=== PATIENT | male | born 1950 | race Caucasian/White ===

== ENCOUNTER 2017-02-02 01:38 | Inpatient (IN) | payer BC ==
[2017-02-02] MEDS ORDERED: Aspirin 325 MG TAB ONE (01:54)
[2017-02-02 02:33] LABS: #Basophils 0.1 thou/uL (0.0-0.2); #Eosinphils 0.1 thou/uL (0.0-0.7); #Lymphocytes 2.6 thou/uL (1.20-3.40); #Monocytes 1.2 thou/uL (0.11-0.59); #Neutrophils 10.9 thou/uL (1.40-6.50); %Basophils 0.8 % (0.0-1.0); %Eosinophils 0.5 % (0.0-10.0); %Lymphocytes 17.4 % (21.0-51.0); %Monocytes 8.2 % (0.0-10.0); Hematocrit 41.2 % (42.0-52.0); Mean Platelet Volume 7.7 fL (7.4-10.4); Red Blood Cell (RBC) Count 5.41 mill/uL (4.70-6.10); White Blood Cell (WBC) Count 14.9 thou/uL (4.8-10.8)
[2017-02-02 02:50] LABS: ALT (SGPT) 23 U/L (8-55); AST (SGOT) 25 U/L (5-34); Alkaline Phosphatase 131 U/L (40-150); Anion Gap 15 mmol/L (10-20); BUN (Urea Nitrogen) 14 mg/dL (8.4-25.7); CK (CPK) 49 U/L (30-200); Calc. Creatinine Clearance 0 mL/min (70-130); Calcium 9.2 mg/dL (7.8-10.44); Carbon Dioxide 21 mmol/L (23-31); Chloride 101 mmol/L (98-107); Estimated GFR-MDRD 59; Globulin 3.8 g/dL (2.4-3.5); Magnesium 2.3 mg/dL (1.6-2.6); Protein, Total 7.8 g/dL (5.8-8.1)
[2017-02-02 02:55] LABS: Troponin I Less than 0.010 ng/mL (< 0.028)
[2017-02-02] MEDS ORDERED: Nitroglycerin 0.4 MG TAB (25 Tab Bottle) ONE (03:35)
[2017-02-02] MEDS ORDERED: Ketorolac Tromethamine 30 MG/ML VIAL ONE (04:05)
[2017-02-02] MEDS ORDERED: Eucerin (Mineral Oil/Petrolatum,White) 30 gm Jar TOP PRN (05:48)
[2017-02-02] MEDS ORDERED: Ondansetron HCl/PF 4 MG/2 ML Vial IVP PRN (05:48)
[2017-02-02] MEDS ORDERED: Acetaminophen 325 MG TAB PO PRN (05:48)
[2017-02-02] MEDS ORDERED: Diabetic Tussin 200 MG/10 ML UDCUP PO PRN (05:48)
[2017-02-02] MEDS ORDERED: Mag-Al 1200 mg/1200 mg/30 ML UDCUP PO PRN (05:48)
[2017-02-02] MEDS ORDERED: Loratadine 10 MG TAB PO PRN (05:48)
[2017-02-02] MEDS ORDERED: Benzonatate 100 MG CAP PO PRN (05:48)
[2017-02-02] MEDS ORDERED: Zolpidem Tartrate 5 MG TAB PO PRN (05:48)
[2017-02-02] MEDS ORDERED: Senokot 8.6 MG TAB PO PRN (05:48)
[2017-02-02] MEDS ORDERED: Sodium Chloride 0.65% Nasal 44 ML BOT EA NARE PRN (05:48)
[2017-02-02] MEDS ORDERED: Milk Of Magnesia 30 ML UDCUP PO PRN (05:48)
[2017-02-02] MEDS ORDERED: Artificial Tears 18 DROP/0.9 ML EA EYE PRN (05:48)
[2017-02-02] MEDS ORDERED: Loperamide HCl 2 MG CAP PO PRN (05:48)
[2017-02-02] MEDS ORDERED: Ondansetron ODT 4 MG TAB PO PRN (05:48)
--- NOTE | 2017-02-02 05:50 | HP ---
PRIMARY CARE PHYSICIAN: Dr. Alireza Brown REASON FOR ADMISSION: Chest pain. HISTORY OF PRESENT ILLNESS: A 66-year-old male who has no significant medical history who came to the emergency room with the complaint of chest pain. The patient reports that chest pain started when he was reading book and resting at home. It was substernal, as well as left-sided in location which radiated to the neck and both shoulders, sharp in nature, constant pain which was getting worse with deep breathing, associated with shortness of breath. The pain was getting worse when he was lying flat. The patient denies any pressure sensation. He denies any associated nausea, vomiting, diaphoresis. In the emergency room, the patient was uncomfortable. He was having severe pain. The patient was given nitroglycerin sublingual and with sublingual nitroglycerin his blood pressure dropped from 153/94 to 121/110 and subsequently with the second nitroglycerin, his blood pressure dropped to 76/ 40. Patient required a bolus of fluid. When the patient's blood pressure dropped at that time his pain had gotten worse. He denies any fever. The patient reports that for the last 10 days he is experiencing cough. He went to see the ENT doctor a few weeks ago and he was given a couple of times steroid injection. The patient was also trying cough syrup with hydrocodone, Benadryl and other over the counter medication. He was having only clear sputum. He denies any hemoptysis. He denies any lower extremity edema or calf tenderness. He denies any immobilization. He has a history of cigar smoking. He denies any similar pain in the past. He denies any exertion related chest pain, palpitation or shortness of breath. He denies any dizziness or syncope. When the patient's blood pressure dropped at that time he was feeling dizziness that was only transient. He did not pass out. The patient denies any UTI symptoms. He denies any constipation, diarrhea, melena, hematochezia. He denies any headache. He denies any sore throat. REVIEW OF SYSTEMS: The following complete review of systems was negative, unless otherwise mentioned in the HPI or below: Constitutional: Weight loss or gain, ability to conduct usual activities. Skin: Rash, itching. Eyes: Double vision, pain. ENT/Mouth: Nose bleeding, neck stiffness, pain, tenderness. Cardiovascular: Palpitations, dyspnea on exertion, orthopnea. Respiratory: Shortness of breath, wheezing, cough, hemoptysis, fever or night sweats. Gastrointestinal: Poor appetite, abdominal pain, heartburn, nausea, vomiting, constipation, or diarrhea. Genitourinary: Urgency, frequency, dysuria, nocturia. Musculoskeletal: Pain, swelling. Neurologic/Psychiatric: Anxiety, depression. Allergy/Immunologic: Skin rash, bleeding tendency. Please see my HPI for pertinent positives and negatives. All other review of systems reviewed and negative except as mentioned in the HPI. EMERGENCY ROOM COURSE: The patient was given nitroglycerin 0.4 mg sublingual and after that his blood pressure dropped and to improve his blood pressure the patient was given 2 liters of IV fluid bolus. The patient was also given aspirin 324 mg and patient was also given Toradol for his pain. PAST MEDICAL HISTORY: Reviewed and negative. PAST SURGICAL HISTORY: The patient had orthopedic surgery on his right shoulder. PAST PSYCHIATRIC HISTORY: Reviewed and negative. SOCIAL HISTORY: Patient is . He drinks alcohol socially, denies any other illicit drug abuse. He smokes cigars daily. FAMILY HISTORY: No strong family history of premature coronary artery disease, stroke or cancer. ALLERGIES: No known drug allergies. CURRENT HOME MEDICATIONS: The patient is not taking any prescribed medication, but lately he was trying [id number] cough medication. PHYSICAL EXAMINATION:. VITAL SIGNS: Lowest blood pressure after nitroglycerin was 76/40 and after IV fluids, his blood pressure improved to 131/72, pulse 83, respiratory rate 18, saturation initially 91% on 2 liters, but after that his saturation improved to 100% on 2 liter, weight 75.5 kilograms. GENERAL: The patient is uncomfortable due to pain. HEENT: Normocephalic, atraumatic. Eyes: Pupils round, reactive to light. Extraocular muscles intact. ENT: Oropharynx within normal limits. Moist mucous membranes. No oral lesions. No pharyngeal erythema, no exudate. NECK: Supple. Range of motion is normal. No meningeal signs of irritation. LUNGS: Clear to auscultation without any rhonchi or rales. CARDIAC: S1, S2 regular. No murmur, no gallop, no rub. ABDOMEN: Soft, bowel sounds present, nontender, nondistended. No organomegaly , no mass, no suprapubic tenderness. CHEST WALL: No point tenderness. No reproducibility. BACK: Unremarkable, no CVA tenderness. EXTREMITIES: Upper extremities; passive movement of all joints are normal. Lower extremities: No edema. Good peripheral pulsation. No calf tenderness. SKIN: No skin rash. HEMATOLOGICAL: No lymphadenopathy. NEUROLOGIC: Nonfocal examination. The patient moves all 4 limbs. Plantar bilateral flexor. PSYCHIATRIC: Normal affect. SIGNIFICANT LABS: EKG based on my review reveals normal sinus rhythm within normal limits. Repeat EKG was done when he had more pain and that also showed normal EKG. Chest x-ray based on my review, no acute cardiopulmonary process. CBC: WBC 14.9, hemoglobin 14.1, platelet 247. BMP: Sodium 133, potassium 4.3 , chloride 101, carbon dioxide 21, BUN 14, creatinine 1.24, glucose 115, calcium 9.2, magnesium 2.3. LFT: AST 25, ALT 23, alkaline phosphatase 131, albumin 4.0. CK 49, CK-MB 0.4, troponin I less than 0.010, BNP 37.6. ASSESSMENT AND PLAN: 1. Acute chest pain. The patient's chest pain description is pleuritic in nature. Given episode of hypotension and dyspnea associated with chest pain, we will do CT dissection protocol to rule out dissection as well as thromboembolic disorder. His 2 EKGs are normal and his cardiac enzymes are negative. We will do 2 more sets of cardiac enzymes to rule out acute coronary syndrome. If CT dissection protocol is unremarkable, then we will consider doing exercise Cardiolite stress test for diagnostic reason. I am suspecting musculoskeletal pain given his recent 10 days history of cough and possible rib cage pain. His pain will be controlled with morphine p.r.n. basis/[place] on a p.r.n. basis. 2. Leukocytosis, unclear etiology, but suspecting from bronchitis/viral infection. 3. Hyponatremia. Patient is given enough IV fluid and we will repeat BMP tomorrow. 4. Acute hypotension after nitroglycerin. We will avoid nitroglycerin again to prevent hypotension. We will watch his hemodynamics today. We will also rule out any thromboembolic disorder and dissection. 5. Tobacco abuse disorder. The patient is given counseling to avoid cigar smoking. 6. Deep venous thrombosis prophylaxis not needed because we are expecting discharge in 24-48 hours. 7. Gastrointestinal prophylaxis, Pepcid 20 mg p.o. b.i.d. 8. CODE STATUS: The patient is FULL CODE. The patient's is surrogate decision maker. 9. Community acquired bacterial pneumonia. will start rocephin 1 gm and levaquin IV daily. will keep pt as inpt status. Disposition plan based on clinical course. MTDD
[2017-02-02 06:04] VITALS: BMI 25.9
[2017-02-02 06:56] LABS: Troponin I Less than 0.010 ng/mL (< 0.028)
--- NOTE | 2017-02-02 08:22 | CT ---
PRELIMINARY REPORT/[facility]/EMERGENCY AFTER HOURS PROCEDURE: EXAM: CT Angiography Chest With Intravenous Contrast CT Angiography Abdomen With Intravenous Contrast CLINICAL HISTORY: 66 years old, male; Pain; Chest pain; Patient HX: 66 yo m presents to ed C/O l chest pain with radia tion to neck and shoulders that started a couple hours group captain while pt was reading and at rest. Pt stat es pain is worse with deep breaths. Also reports SOB which is worse laying flat. Denies this happeni ng in the past. Pt has been congested and coughing with clear sputum for past x10 days. Also reports chills, pt did not check if he had a fever. Pt also reports feeling thirsty, states he has also bee n urinating less than normal. Pt reports smoking cigars. Denies cardiac fmh. ; Additional info: on ly 70 ml of contrast used due to low gfr TECHNIQUE: Axial computed tomographic angiography images of the chest and abdomen with intravenous contrast usi ng CT angiography protocol. Coronal and sagittal reformatted images were created and reviewed. CONTRAST: 70 mL of ISOVUE 370 administered intravenously. COMPARISON: No relevant prior studies available. FINDINGS: VASCULATURE: Aorta: [id number] infrarenal atherosclerotic calcifications. No aortic aneurysm. No dissection . Pulmonary arteries: Limited opacification of the pulmonary arteries. No filling defect appreciated i n the main or lobar branches. Great vessels of aortic arch: No acute findings. No dissection. No occlusion or significant stenosis . Celiac trunk and mesenteric arteries: No acute findings. No occlusion or significant stenosis. Renal arteries: No acute findings. No occlusion or significant stenosis. CHEST: Lungs: Moderate centrilobular emphysematous changes with paraseptal component. Left lower lobe mucou s plugging with some subsegmental atelectasis and groundglass and patchy consolidative densities dep endently. Minimal right lower lobe bronchiolar plugging and dependent groundglass opacities. Pleural space: No significant effusion. No pneumothorax. Heart: Coronary atherosclerosis. Trace pericardial effusion or thickening. ABDOMEN: Liver: Normal. Gallbladder and bile ducts: Normal. Pancreas: Normal. Spleen: Normal. Adrenals: Normal. Kidneys and ureters: Subcentimeter right renal cyst. Otherwise unremarkable. Stomach and bowel: Unremarkable. No obstruction. Intraperitoneal space: Normal. No significant fluid collection. No free air. CHEST and ABDOMEN: Bones/joints: No acute fracture. No dislocation. Soft tissues: Unremarkable. Lymph nodes: Multiple subcentimeter mediastinal and bilateral hilar lymph nodes measuring up to 1.2 cm short axis and the right hilar region. IMPRESSION: 1. No acute vascular findings. 2. Emphysematous changes. Left lobe mucous plugging and dependent groundglass and patchy consolidati ve densities with minimal similar findings in the right lower lobe may represent infectious/inflamma tory process versus aspiration. Thank you for allowing us to participate in the care of your patient. Dictated and Authenticated by: Seth Lino MD 02/02/2017 5:14 AM Central Time ([place] \T\ [place]) FINAL REPORT CT ANGIOGRAM OF CHEST AND ABDOMEN: Date: 02/02/17 COMPARISON: None. HISTORY: Chest pain. FINDINGS: I agree with the preliminary report given by [facility]. Motion artifact limits detailed assessment of the lung parenchyma. There is extensive pulmonary pare nchymal emphysematous change with an upper lobe predominance. Areas of patchy opacification noted wi thin both lower lobes, left greater than right, especially in the lung bases. There are areas of muc us plugging noted within the lung bases, left greater than right. Findings may be on the basis of as piration and/or infectious pneumonitis. The provided imaging is performed with coronal and sagittal 3D reformatted imaging. There are gasca ry arterial calcifications. There is atherosclerotic calcification at the level of the aortic arch. There is no evidence for aneurysm or dissection of the abdominal or thoracic aorta. There is extensi ve atherosclerotic calcification in the infrarenal abdominal aorta and the arterial structures of th e pelvis. No axillary adenopathy is seen. Mildly prominent nodes are seen in bilateral hilar regions and in th e paratracheal regions, nonspecific. Evaluation of the bowel is limited without oral contrast. The pelvis is not imaged. No acute hepatic or splenic abnormality seen. Gallbladder and pancreas appear unremarkable, as do bilateral adrenal glands. There is a tiny hypodensity in the lateral lower pole of the right kidney, too small to janel acterize. No retroperitoneal lymphadenopathy. No acute osseous abnormality. There is a unilateral left-sided L5 pars defect present. IMPRESSION: 1. Atherosclerotic disease with no evidence for aneurysm or dissection of the abdominal or thoracic aorta. 2. Bilateral emphysematous change. 3. Basilar mucus plugging and pulmonary parenchymal opacity, left greater than right, which may sig nify infectious pneumonitis/aspiration. POS: [facility]
--- NOTE | 2017-02-02 08:38 | RAD ---
PORTABLE UPRIGHT FRONTAL CHEST RADIOGRAPH: DATE: 02/02/17. COMPARISON: None. HISTORY: Chest pain. FINDINGS: Mild increased linear density noted in bilateral lung bases, left greater than right, significance u ncertain. No pneumothorax, pleural fluid, focal consolidation, or alveolar edema. IMPRESSION: Mild increased linear bibasilar density with no lobar consolidation or alveolar edema. POS: [facility]
--- NOTE | 2017-02-02 08:59 | PDOC.PN ---
- Subjective Encounter Start Date: 02/02/17 Encounter Start Time: 08:57 Patient seen at bedside. Overnight had an episode of chest pain which resolved with Nitroglycerin and Toradol. This morning had an episode of pleuritic chest pain. - Objective Resuscitation Status: Resuscitation Status FULL:Full Resuscitation MAR Reviewed: Yes Vital Signs & Weight: Vital Signs (12 hours) Temp Pulse Resp BP Pulse Ox 02/02/17 08:00 97.8 F 73 24 H 132/83 90 L 02/02/17 05:31 98.3 F 68 14 104/58 L 92 L Weight Weight 171 lb I&O: 02/01/17 02/02/17 02/03/17 06:59 06:59 06:59 Intake Total 240 Balance 240 Result Diagrams: 02/02/17 02:15 02/02/17 02:15 Phys Exam - Physical Examination Constitutional: NAD HEENT: moist MMs Neck: no JVD mild wheezing Cardiovascular: RRR Tenderness at left chest wall Gastrointestinal: soft Musculoskeletal: pulses present Neurological: normal sensation Psychiatric: normal affect, A&O x 3 Dx/Plan (1) Chest pain Code(s): R07.9 - CHEST PAIN, UNSPECIFIED Status: Acute Qualifiers: Chest pain type: chest pain on breathing Qualified Code(s): R07.1 - Chest pain on breathing; R07.81 - Pleurodynia (2) Community acquired pneumonia Code(s): J18.9 - PNEUMONIA, UNSPECIFIED ORGANISM Status: Suspected (3) Leukocytosis Code(s): D72.829 - ELEVATED WHITE BLOOD CELL COUNT, UNSPECIFIED Status: Acute - Plan cont current plan of care, plan discussed w/ family, continue antibiotics, respiratory therapy * Start IV Fluids. * Toradol and Nitroglycerin PRN * Continue with IV ABX for suspected CAP * Discontinue Stress test. * Given clinical presentation and reproducibility of chest discomfort this appears to be pleuritic in nature. However given his cardiac risk factors he will require further clinical monitoring. Will repeat a EKG to monitor for dynamic changes after medication administration. * Cardiology consultation.
[2017-02-02] MEDS ORDERED: FLU VACC TS2017-18 (>65YR) 0.5 ML SYRINGE IM ONE (09:00)
[2017-02-02 09:01] LABS: Troponin I 0.017 ng/mL (< 0.028)
[2017-02-02] MEDS: cefTRIAXone\\ROCEPHIN 1 GM in Sodium Chloride 0.9% 100 ML IVPB SCH (09:13)
[2017-02-02] MEDS: Ketorolac Tromethamine 30 MG/ML VIAL IVP PRN ×2 (09:30→23:15)
[2017-02-02] MEDS: Nitroglycerin 0.4 MG TAB (25 Tab Bottle) SL PRN ×3 (09:32→10:02)
[2017-02-02] MEDS: Sodium Chloride 0.9% 1,000 ML IV SCH ×2 (09:48→23:08)
[2017-02-02] MEDS: Aspirin 325 MG TAB PO SCH (10:04)
[2017-02-02] MEDS: Famotidine 20 MG TAB PO SCH ×2 (10:04→23:08)
[2017-02-02] MEDS ORDERED: Regadenoson 0.4 MG/5 ML SYRINGE ONE (12:00)
[2017-02-02] MEDS: HYDROcodone/Acetaminophen 5/325 mg Tablet PO PRN ×2 (12:13→18:11)
[2017-02-02] MEDS ORDERED: Colchicine 0.6 MG TAB PO SCH (12:15)
[2017-02-02] MEDS ORDERED: ISOVUE-370 76%-LOCM 1 ML ONE (16:33)
--- NOTE | 2017-02-02 18:09 | CON ---
DATE OF CONSULTATION: 02/02/2017 HISTORY OF PRESENT ILLNESS: Mr. Kim Haddad is a 66-year-old white male who presented with a complaint of chest pain. Over the last week, he has had a cough productive with clear and white sputum. Yesterday, he began to notice substernal chest pressure radiating to both shoulders. This started around 8: 00 p.m. The pain was definitely worse with a deep breath or cough. He came in to the emergency room and was found to have pneumonia. He has been started on antibiotics. The pain is still pleuritic in nature. PAST MEDICAL HISTORY: He denies any history of hypertension, diabetes or hypercholesterolemia. MEDICATIONS: He states that he has been taking a cough medicine. ALLERGIES: None. OPERATIONS: Right shoulder surgery. SOCIAL HISTORY: He smokes 12 cigars per day. He does not drink. FAMILY HISTORY: Negative for coronary artery disease. REVIEW OF SYSTEMS: Twelve-point review of systems otherwise unremarkable. PHYSICAL EXAMINATION: VITAL SIGNS: Blood pressure is 117/64 and pulse is 69. HEENT: PERRL. NECK: Supple. LUNGS: Chest is clear. CARDIAC: S1 and S2 are normal, without any S3 or S4, murmurs or rubs. ABDOMEN: Normal bowel sounds, without tenderness or organomegaly. EXTREMITIES: Revealed no clubbing, cyanosis or edema. NEUROLOGIC: Grossly intact. SKIN: Warm and dry. LABORATORY AND IMAGING DATA: EKG reveals normal sinus rhythm and is unremarkable. White count 14,900, hemoglobin 14.1, hematocrit 41.2 and platelets 247,000. Sodium 133, potassium 4.3, chloride 101, carbon dioxide 21, BUN 14 and creatinine 1.24. Cardiac enzymes were negative x3. Cholesterol 168 , triglycerides 83, HDL 35 and LDL 116. CTA aortic dissection protocol revealed no vascular findings. He had emphysematous changes with left lobe mucus plugging and a ground glass patchy consolidation, also with findings in the right lower lobe consistent with pneumonia. IMPRESSION: 1. Pleuritic chest pain. 2. Pneumonia. 3. Smoker. 4. Hypercholesterolemia. PLAN: The patient will be continued on IV antibiotics. His current pain is pleuritic in nature, probably related to his pneumonia. Consideration will be given to Cardiolite testing once his discomfort improves. He would also undergo an echocardiogram to rule out any pericardial findings. [facility]
[2017-02-02] MEDS: Colchicine 0.6 MG TAB PO SCH (23:05)
--- NOTE | 2017-02-03 10:06 | PDOC.PN ---
- Subjective Encounter Start Date: 02/03/17 Encounter Start Time: 08:30 -: old records requested/rev Patient seen and examined. No new complaints. No overnight events, no pleurtic chest pain, less cough, no fever - Objective Resuscitation Status: Resuscitation Status FULL:Full Resuscitation MAR Reviewed: Yes Vital Signs & Weight: Vital Signs (12 hours) Temp Pulse Resp BP BP BP BP 02/03/17 07:25 98.5 F 89 18 02/03/17 07:20 98.5 F 89 18 124/61 106/53 L 113/59 L 02/03/17 05:48 69 18 150/72 H 02/03/17 00:00 74 18 141/84 H 02/02/17 22:37 Pulse Ox 02/03/17 07:25 94 L 02/03/17 07:20 94 L 02/03/17 05:48 96 02/03/17 00:00 94 L 02/02/17 22:37 98 Weight Weight 171 lb I&O: 02/02/17 02/03/17 02/04/17 06:59 06:59 06:59 Intake Total 240 1320 Output Total 200 Balance 240 1120 Result Diagrams: 02/02/17 02:15 02/02/17 02:15 Radiology Reviewed by me: Yes EKG Reviewed by me: Yes Phys Exam - Physical Examination Constitutional: NAD HEENT: PERRLA, moist MMs, sclera anicteric Neck: no JVD, supple Respiratory: no wheezing, no rhonchi few LLL rales Cardiovascular: RRR, no significant murmur, no rub Gastrointestinal: soft, non-tender, no distention, positive bowel sounds Musculoskeletal: no edema, pulses present Neurological: non-focal, normal sensation Lymphatic: no nodes Psychiatric: normal affect, A&O x 3 Skin: no rash, normal turgor Dx/Plan (1) Acute pericarditis Code(s): I30.9 - ACUTE PERICARDITIS, UNSPECIFIED Status: Acute Qualifiers: Infectious pericarditis etiology: unspecified (2) Community acquired bacterial pneumonia Code(s): J15.9 - UNSPECIFIED BACTERIAL PNEUMONIA Status: Acute (3) Hyponatremia Code(s): E87.1 - HYPO-OSMOLALITY AND HYPONATREMIA Status: Acute (4) Leucocytosis Code(s): D72.829 - ELEVATED WHITE BLOOD CELL COUNT, UNSPECIFIED Status: Acute (5) Pleuritic chest pain Code(s): R07.81 - PLEURODYNIA Status: Acute (6) Tobacco abuse Code(s): Z72.0 - TOBACCO USE Status: Chronic - Plan cont current plan of care, plan discussed w/ family, continue antibiotics * today plan for echo and stress test * continue rocephin and levaquin * continue colchicine * medication reviewed as below * symptomatic treatment. * will repeat labs tomorrow * wean off oxygen today as tolerated Review of Systems - Review of Systems Constitutional: negative: Fever, Chills, Sweats, Weakness, Malaise, Other Eyes: negative: Pain, Vision Change, Conjunctivae Inflammation, Eyelid Inflammation, Redness, Other Respiratory: Cough, Pleuritic Pain. negative: Dry, Shortness of Breath, Hemoptysis, SOB with Excertion, Sputum, Wheezing Cardiovascular: Chest Pain. negative: Palpitations, Orthopnea, Paroxysmal Noc. Dyspnea, Edema, Light Headedness, Other Gastrointestinal: negative: Nausea, Vomiting, Abdominal Pain, Diarrhea, Constipation, Melena, Hematochezia, Other Genitourinary: negative: Dysuria, Frequency, Incontinence, Hematuria, Retention , Other Musculoskeletal: negative: Neck Pain, Shoulder Pain, Arm Pain, Back Pain, Hand Pain, Leg Pain, Foot Pain, Other - Medications/Allergies Allergies/Adverse Reactions: Allergies Allergy/AdvReac Type Severity Reaction Status Date / Time No Known Allergies Allergy Verified 02/02/17 06:02 Medications: Current Medications Acetaminophen (Tylenol) 650 mg PO Q4H PRN PRN Reason: Headache/Fever or Pain Hydrocodone Bitart/Acetaminophen ([place] 5/325) 1 tab PO Q4H PRN PRN Reason: Moderate Pain (4-6) Last Admin: 02/02/17 18:11 Dose: 1 tab Al Hydroxide/Mg Hydroxide (Maalox) 30 ml PO Q6H PRN PRN Reason: Heartburn or Indigestion Albuterol/Ipratropium (Duoneb) 3 ml NEB [id number] PRN PRN Reason: SOB &/or Wheezing Artificial Tears (Tears Naturale) 0 drop EA EYE PRN PRN PRN Reason: Dry Eyes Aspirin (Aspirin) 325 mg PO DAILY FRANCIA Last Admin: 02/02/17 10:04 Dose: Not Given Benzonatate (Tessalon) 100 mg PO Q4H PRN PRN Reason: Cough Colchicine (Colcrys) 0.6 mg PO BID [facility] Last Admin: 02/02/17 23:05 Dose: 0.6 mg Famotidine (Pepcid) 20 mg PO BID [facility] Last Admin: 02/02/17 23:08 Dose: 20 mg Guaifenesin (Robitussin Sf) 200 mg PO Q4H PRN PRN Reason: Cough Last Admin: 02/02/17 23:21 Dose: 200 mg Levofloxacin 750 mg/ Device 150 mls @ 100 mls/hr IVPB Q24HR [facility] Last Admin: 02/03/17 06:22 Dose: 150 mls Ceftriaxone Sodium 1 gm/ (Sodium Chloride) 100 mls @ 200 mls/hr IVPB Q24HR [facility] Last Admin: 02/02/17 09:13 Dose: 100 mls Sodium Chloride (Normal Saline 0.9%) 1,000 mls @ 75 mls/hr IV .[id number] [facility] Last Admin: 02/02/17 23:08 Dose: 1,000 mls Ketorolac Tromethamine (Toradol) 15 mg IVP Q6H PRN PRN Reason: Pain Stop: 02/07/17 09:06 Last Admin: 02/02/17 23:15 Dose: 15 mg Loperamide HCl (Imodium) 2 mg PO PRN PRN PRN Reason: Diarrhea/Loose Stools Loratadine (Claritin) 10 mg PO DAILYPRN PRN PRN Reason: Sinus Symptoms Magnesium Hydroxide (Milk Of Magnesium) 30 ml PO DAILYPRN PRN PRN Reason: Constipation Mineral Oil/White Petrolatum (Eucerin Cream) 0 gm TOP BIDPRN PRN PRN Reason: Dry Skin Morphine Sulfate (Morphine Sulfate) 2 mg SLOW IVP Q4H PRN PRN Reason: Pain Last Admin: 02/02/17 17:03 Dose: 2 mg Nitroglycerin (Nitrostat) 0.4 mg SL Q5MIN PRN PRN Reason: Chest Pain Last Admin: 02/02/17 10:02 Dose: 0.4 mg Ondansetron HCl (Zofran Odt) 4 mg PO Q6H PRN PRN Reason: Nausea/Vomiting Ondansetron HCl (Zofran) 4 mg IVP Q6H PRN PRN Reason: Nausea/Vomiting Senna (Senokot) 2 tab PO HSPRN PRN PRN Reason: Constipation Sodium Chloride ([place] Nasal [place] 0.65%) 0 ml EA NARE QIDPRN PRN PRN Reason: Nasal Congestion Sodium Chloride (Flush - Normal Saline) 10 ml IVF Q12HR FRANCIA Last Admin: 02/03/17 00:06 Dose: Not Given Sodium Chloride (Flush - Normal Saline) 10 ml IVF PRN PRN PRN Reason: Saline Flush Zolpidem Tartrate (Ambien) 5 mg PO HSPRN PRN PRN Reason: Insomnia
[2017-02-03] MEDS: cefTRIAXone\\ROCEPHIN 1 GM in Sodium Chloride 0.9% 100 ML IVPB SCH (10:36)
[2017-02-03] MEDS: Colchicine 0.6 MG TAB PO SCH ×2 (15:00→21:00)
[2017-02-03] MEDS: Aspirin 325 MG TAB PO SCH (15:00)
[2017-02-03] MEDS: Sodium Chloride 0.9% 1,000 ML IV SCH ×2 (15:01→21:05)
[2017-02-03] MEDS: Famotidine 20 MG TAB PO SCH ×2 (15:01→21:00)
--- NOTE | 2017-02-03 19:36 | NM ---
MYOCARDIAL PERFUSION EVALUATION: 02/03/17 INDICATION: Acute chest pain. RADIOPHARMACEUTICAL: 27 millicuries of technetium 99m Sestamibi IV with stress and 9 millicuries of technetium 99m Sestam ibi with rest. FINDINGS: When comparing the rest and stress images, no reversible myocardial perfusion defect is evident. The re was normal wall motion thickening. LVEF was estimated at 70%. IMPRESSION: Normal myocardial perfusion evaluation. 1. No definite scintigraphic evidence of reversible myocardial ischemia. 2. Estimated LVEF of 72%. POS: [facility]
[2017-02-04 05:59] LABS: Anion Gap 9 mmol/L (10-20); BUN (Urea Nitrogen) 8 mg/dL (8.4-25.7); Calc. Creatinine Clearance 93 mL/min (70-130); Calcium 8.9 mg/dL (7.8-10.44); Carbon Dioxide 22 mmol/L (23-31); Chloride 106 mmol/L (98-107); Estimated GFR-MDRD Greater than 90
[2017-02-04 07:02] LABS: Acanthocytes SLIGHT = 1-5 cells (100X) (None Seen); Anisocytosis SLIGHT = 6-15 cells (100X) (0-5/hpf); Band 1 % (5-11); Burr Cells SLIGHT = 2-5 cells (100X) (0-1/hpf); Hematocrit 35.8 % (42.0-52.0); Metamyelocyte 1 % (0-0); Microcytosis SLIGHT = 6-15 cells (100X) (0-5/hpf); Myelocyte 1 % (0-0); Neutrophil 53 % (42-75); Reactive Lymphocytes 2 % (0-10); Red Blood Cell (RBC) Count 4.67 mill/uL (4.70-6.10); White Blood Cell (WBC) Count 8.5 thou/uL (4.8-10.8)
[2017-02-04] MEDS: Famotidine 20 MG TAB PO SCH (09:54)
[2017-02-04] MEDS: Colchicine 0.6 MG TAB PO SCH (09:54)
[2017-02-04] MEDS: Aspirin 325 MG TAB PO SCH (09:54)
[2017-02-04] MEDS: cefTRIAXone\\ROCEPHIN 1 GM in Sodium Chloride 0.9% 100 ML IVPB SCH (09:57)
--- NOTE | 2017-02-04 10:42 | DIS ---
DATE OF ADMISSION: 02/02/2017 DATE OF DISCHARGE: 02/04/2017 PRIMARY CARE PHYSICIAN: Alireza Brown M.D. DISCHARGE DISPOSITION: Home. PRIMARY DISCHARGE DIAGNOSES: 1. Community-acquired bacterial pneumonia. 2. Pleurisy. 3. Pericarditis suspected. 4. Hyponatremia. 5. Leukocytosis. SECONDARY DISCHARGE DIAGNOSIS: Tobacco abuse disorder. PRIMARY PROCEDURE/OPERATION: None. RADIOLOGICAL INVESTIGATION: Chest x-ray on admission showed mild increased linear bibasilar density. CT dissection protocol showed no evidence of dissection or PE, but it did show emphysematous changes and left lobe mucus plugging and ground glass patchy consolidative changes in right lower lobe. Stress test was negative for any ischemia. Echocardiography was negative for any pericardial effusion, moderate mitral regurgitation, normal EF. SIGNIFICANT LABORATORY DATA: WBC 8.5, hemoglobin 11.8, platelet 243, MCV 76.8, sodium 133, potassium 3.6, BUN 8, creatinine 0.83, calcium 8.9. CRP 13.4. Cardiac enzymes negative. BNP 37.6, LDL 81. DISCHARGE MEDICATIONS: Levofloxacin 750 mg p.o. daily for 7 days, colchicine 0.6 mg p.o. b.i.d. for 7 days, Pepcid 20 mg p.o. b.i.d. CONTRAINDICATIONS: None. CODE STATUS: FULL CODE. INPATIENT ENGINEERING FACULTY: Dr. Keyes was following while in hospital. TEST RESULTS PENDING ON DISCHARGE: None. ALLERGIES: No known drug allergy. DISCHARGE PLAN: Post hospital, the patient will follow up with Dr. Alireza Brown in 1 week. The patient is advised to repeat chest x-ray upon followup visit with primary care physician. HOSPITAL COURSE: A 66-year-old male who was admitted by pa on 02/02/2017. The patient presented to the emergency room with chest pain. His chest pain was pleuritic in nature, as well as lying down position was getting more pain. The patient also had leukocytosis. His blood pressure dropped with nitroglycerin in the emergency room that improved with IV fluid. The patient was admitted to telemetry floor. We did CT dissection protocol and that was showing infectious changes in the right lower lobe and we started on Rocephin and Levaquin while in hospital. We controlled his pain with Toradol. As he was having severe pleuritic chest pain and that is why there was concern of pleurisy versus pericarditis and we started on colchicine, with that patient had significant improvement. Surprisingly, CT dissection protocol showed some pericardial effusion, but when we repeated echocardiography, there was no pericardial effusion. At this point, our diagnosis of pericarditis is suspected. We are thinking more towards community-acquired pneumonia with pleurisy. Patient is given colchicine on discharge, we are changing to p.o. Levaquin therapy. During this admission, the patient also underwent a stress test that was negative. The patient is currently asymptomatic. His cough is significantly improved. His leukocytosis resolved. He has microcytic anemia and that is why we advised him to do age appropriate colonoscopy screening after discharge. The patient is seen and examined at bedside today. The patient wants to go home today. PHYSICAL EXAMINATION: VITAL SIGNS: He is currently afebrile with temperature 97.5, pulse 63, respiratory rate 16, saturation 97% on room air, blood pressure 156/77, weight 163 pounds. GENERAL: The patient is currently alert, awake, no acute distress. HEAD: Normocephalic, atraumatic. LUNGS: Clear. CARDIAC: S1, S2 regular without any murmur. ABDOMEN: Soft and benign. EXTREMITIES: No edema. NEUROLOGIC: Nonfocal examination. The patient is medically stable for discharge. All new medication prescriptions given to him. FMLA paper work done Total time spent on discharge day more than 30 minutes MTDD
[2017-02-04 11:31] VITALS: BP 135/76; TEMP 97.4
== END 2017-02-04 12:03 | disposition home or self-care (01) | DRG 314 ==
LOC: ERS 01:38 → OBSVTOIN 03:44 → 2SW 03:44 → 2NO 11:26
PROVIDERS: ADMIT Internal Medicine; ATTEND Internal Medicine
DX: I30.9 Acute pericarditis, unspecified (principal); J15.9 Unspecified bacterial pneumonia; R09.01 Asphyxia; E87.1 Hypo-osmolality and hyponatremia; I95.2 Hypotension due to drugs; D50.9 Iron deficiency anemia, unspecified; F17.290 Nicotine dependence, other tobacco product, uncomplicated; T46.3X5A Adverse effect of coronary vasodilators, initial encounter; R09.1 Pleurisy; E78.00 Pure hypercholesterolemia, unspecified
CPT/HCPCS: 36415; 71010; 71275; 78452; 80048; 80053; 80061; 82553; 83735; 83880; 84484; 85025; 86140; 93005; 93010; 93017; 93306; 94760; 96361; 96374; A4216; A9500; J0696; J1885; J1956; J2270; J2785; J7050